=== PATIENT | female | born 1940 | race Caucasian/White ===

== ENCOUNTER → 2020-09-17 | Outpatient (CLI) | payer OTHER, SELFPAY ==
[~2020-09-17] MED LIST: ELIQUIS5 MG PO; FUROSEMIDE20 MG PO; GLUCOTROL XL 22.5 MG PO; K-DUR TAB 20 M20 MEQ PO; LEVAQUIN500 MG PO; LEVOTHYROXINE88 MCG PO; METFORMIN HCL750 MG PO; METOPROLOL SUCC25 MG PO; MIRALAX 119 GR119 GM PO; PRAVACHOL40 MG PO; PROTONIX40 MG PO; TYLENOL W/CODEIN1 E1 PO; ZESTORETIC 20-1 EAC1 PO; ZESTORETIC 20-1 EACH PO
== END ==
LOC: HEART 5 08:53
DX: I20.9 Angina pectoris, unspecified (principal)
CPT/HCPCS: 78452; A9502; J2785

== ENCOUNTER → 2021-04-23 | Outpatient (CLI) | payer OTHER | LOC: HEART 5 10:00 | DX: I48.91 Unspecified atrial fibrillation (principal); I08.1 Rheumatic disorders of both mitral and tricuspid valves; I27.20 Pulmonary hypertension, unspecified | CPT/HCPCS: 93306 ==